=== PATIENT | male | born 1990 | race African-American/Black ===

== ENCOUNTER 2020-04-22 17:51 | Emergency (ER) | payer OTHER ==
[~2020-04-22] VITALS: Ht 182.9 cm; Wt 86.0 kg
[2020-04-22 17:51] VITALS: BP 134/62
--- NOTE | 2020-04-22 17:54 | PHYS DOC ---
General Adult HPI: HPI: ".. I was getting tested for Asthma at [facility].. I was sent there by [facility].. I was doing deep breaths in the machine.. and felt a pop on my Rt. chest wall.. here ( Points to anterior axillary line T 8/T9 level. 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 Who presents with above hx and complaints right chest wall pain at T8/T9 level at anterior axillary line. Site is tender to palpation, reproduced with deep breaths and cough, and some movement. Patient denies any other history of trauma while working at the disarray/present at [place]. Denies any trauma during PT. Patient states he has been currently being evaluated for asthma reactive airway. Patient denies any recent travel or specific ill contacts. Patient gives a history of prehypertension diagnosis. Patient denied any history of coagulopathy, DVT or other hematological disorders. Patient does not know family history since he is adopted. Patient only follows at [facility] for care. Review of Systems: Review of Systems: Constitutional: Denies fever or chills Eyes: Denies change in visual acuity HENT: Denies nasal congestion or sore throat Respiratory: Complains of chest wall pain Cardiovascular: Denies chest pain or edema GI: Denies abdominal pain, nausea, vomiting, bloody stools or diarrhea : Denies dysuria Musculoskeletal: Denies back pain or joint pain Integument: Denies rash Neurologic: Denies headache, focal weakness or sensory changes Endocrine: Denies polyuria or polydipsia Lymphatic: Denies swollen glands Psychiatric: Denies depression or anxiety Family History: Family History: Not currently available he is adopted Current Medications: Current Meds: See nursing for home meds Allergies: Allergies: No known drug allergies Physical Exam: PE: Constitutional: Well developed, well nourished, no acute distress, non-toxic appearance. [] HENT: Normocephalic, atraumatic, bilateral external ears normal, oropharynx moist, no oral exudates, nose normal. [] Eyes: PERRLA, EOMI, conjunctiva normal, no discharge. [] Neck: Normal range of motion, no tenderness, supple, no stridor. [] Cardiovascular:Heart rate regular rhythm, no murmur [] Lungs & Thorax: Bilateral breath sounds equal apex on auscultation [] chest wall tenderness as per HPI Abdomen: Bowel sounds normal, soft, no tenderness, no masses, no pulsatile masses. [] Skin: Warm, dry, no erythema, no rash. Multiple tattoos. Serenity tattoos across his chest Back: No tenderness, no CVA tenderness. [] Extremities: No tenderness, no cyanosis, no clubbing, ROM intact, no edema. No cording appreciated Neurologic: Alert and oriented X 3, normal motor function, normal sensory function, no focal deficits noted. [] Psychologic: Affect anxious, judgement normal, mood normal. [] EKG: EKG: [] Radiology/Procedures: Radiology/Procedures: [][place] [address] IMAGING REPORT Signed PATIENT: CAROLYNE ANGUIANO ACCOUNT: [id number] : 1990 LOCATION: ER AGE: 29 SEX: M EXAM STATUS: REG ER ORD. PHYSICIAN: ALYSON CANDELARIO MD REASON: cp PROCEDURE: CHEST PA & LATERAL EXAM: CHEST 2 VIEWS. HISTORY: Chest pain. COMPARISON: None. FINDINGS: Frontal and lateral views of the chest are obtained. There are no confluent infiltrates. There is no pneumothorax or pleural effusion. The heart is not enlarged. IMPRESSION: 1. No confluent infiltrates. Electronically signed by: Namita Limon MD (04/22/2020 6:21 PM) [facility] DICTATED AND SIGNED BY: BEVERLY LIMON MD DATE: 04/22/201820 Heart Score: C/O Chest Pain: Yes HEART Score for Chest Pain: HEART Score for Chest Pain Response (Comments) Value History Slighlty/Non-Suspicious 0 ECG Normal 0 Age < 45 0 Risk Factors No Risk Factors 0 Troponin < Normal Limit 0 Total 0 Risk Factors: Risk Factors: DM, Current or recent (<one month) smoker, HTN, HLP, family history of CAD, obesity. Risk Scores: Score 0 - 3: 2.5% MACE over next 6 weeks - Discharge Home Score 4 - 6: 20.3% MACE over next 6 weeks - Admit for Clinical Observation Score 7 - 10: 72.7% MACE over next 6 weeks - Early Invasive Strategies Course & Med Decision Making: Course & Med Decision Making Pertinent Labs and Imaging studies reviewed. (See chart for details) Patient follow-up primary care. He is to ice packs as needed. Suspect cartilage or muscle tear. Expect prolonged tenderness at site. Tylenol ibuprofen for pain. Return if any concerns. Impression: 1. Chest wall pain [] Dragon Disclaimer: Adi Disclaimer: This electronic medical record was generated, in whole or in part, using a voice recognition dictation system. Departure Departure: Referrals: PCP,UNKNOWN (PCP) Scripts Ibuprofen (IBUPROFEN) 400 Mg Tablet 400 MG PO QIDAFTMEAL PRN for chest pain., #120 TAB Prov: ALYSON CANDELARIO MD 04/22/20 Adi Disclaimer This chart was dictated in whole or in part using Voice Recognition software in a busy, high-work load, and often noisy Emergency Department environment. It may contain unintended and wholly unrecognized errors or omissions. ALYSON CANDELARIO MD Apr 22, 2020 17:54
--- NOTE | 2020-04-22 18:24 | RAD ---
EXAM: CHEST 2 VIEWS. HISTORY: Chest pain. COMPARISON: None. FINDINGS: Frontal and lateral views of the chest are obtained. There are no confluent infiltrates. There is no pneumothorax or pleural effusion. The heart is not en larged. IMPRESSION: 1. No confluent infiltrates. Electronically signed by: Namita Limon MD (04/22/2020 6:21 PM) [facility]
[2020-04-22] MEDS ORDERED: IBUP400T18 PO (18:25)
[2020-04-22] MEDS ORDERED: KETOROLAC 60 MG/2 ML VIAL. IM ONE (18:30)
== END 2020-04-22 19:30 | disposition home or self-care (01) ==
LOC: ER 17:51
DX: R07.89 Other chest pain (principal); R06.00 Dyspnea, unspecified; R05 Cough
CPT/HCPCS: 71046; 99283

== ENCOUNTER 2021-03-14 15:24 | Emergency (ER) | payer OTHER ==
[~2021-03-14] VITALS: Ht 175.3 cm; Wt 87.2 kg
[~2021-03-14 15:24] MED LIST: IBUP400T18 PO
[2021-03-14 15:50] VITALS: BP 143/72
--- NOTE | 2021-03-14 16:14 | PHYS DOC ---
Past History Past Medical History: No Pertinent History Past Surgical History: No Surgical History Alcohol Use: None General Adult EDM: Chief Complaint: NAUSEA/VOMITING/DIARRHEA HPI: HPI: 30-year-old male presents with low-grade fever, body aches, nausea, vomiting, diarrhea. The patient's symptoms started yesterday. His and infant son have similar symptoms. Patient is fully vaccinated against COVID-19. He also had COVID-19 1 year ago this month. He has taken Tylenol prior to arrival. Review of Systems: Review of Systems: Constitutional: Denies fever or chills. Body aches, fatigue Eyes: Denies change in visual acuity HENT: Denies nasal congestion or sore throat Respiratory: Denies cough or shortness of breath Cardiovascular: Denies chest pain or edema GI: Nausea, vomiting, diarrhea. : Denies dysuria Musculoskeletal: Denies back pain or joint pain Integument: Denies rash Neurologic: Denies headache, focal weakness or sensory changes Endocrine: Denies polyuria or polydipsia Lymphatic: Denies swollen glands Psychiatric: Denies depression or anxiety Current Medications: Current Meds: Current Medications Medications (Trade) Dose Ordered Sig/Adolph Start Time Stop Time Status Last Admin Dose Admin Ondansetron HCl (Zofran Odt) 4 mg 1X ONCE 03/14/21 16:15 03/14/21 16:16 UNV Allergies: Allergies: Allergies Coded Allergies Type Severity Reaction Last Updated Verified No Known Drug Allergies 04/22/20 No Physical Exam: PE: Constitutional: Well developed, well nourished, no acute distress, non-toxic appearance. [] HENT: Normocephalic, atraumatic, bilateral external ears normal, oropharynx moist, no oral exudates, nose normal. [] Eyes: PERRLA, EOMI, conjunctiva normal, no discharge. [] Neck: Normal range of motion, no tenderness, supple, no stridor. [] Cardiovascular: Heart rate regular rhythm, no murmur [] Lungs & Thorax: Bilateral breath sounds clear to auscultation [] Abdomen: Bowel sounds normal, soft, no tenderness, no masses, no pulsatile masses. [] Skin: Warm, dry, no erythema, no rash. [] Back: No tenderness, no CVA tenderness. [] Extremities: No tenderness, no cyanosis, no clubbing, ROM intact, no edema. [] Neurologic: Alert and oriented X 3, normal motor function, normal sensory function, no focal deficits noted. [] Psychologic: Affect normal, judgement normal, mood normal. [] EKG: EKG: [] Radiology/Procedures: Radiology/Procedures: [] Heart Score: C/O Chest Pain: N/A Risk Factors: Risk Factors: DM, Current or recent (<one month) smoker, HTN, HLP, family history of CAD, obesity. Risk Scores: Score 0 - 3: 2.5% MACE over next 6 weeks - Discharge Home Score 4 - 6: 20.3% MACE over next 6 weeks - Admit for Clinical Observation Score 7 - 10: 72.7% MACE over next 6 weeks - Early Invasive Strategies Course & Med Decision Making: Course & Med Decision Making Pertinent Labs and Imaging studies reviewed. (See chart for details) The patient's rapid influenza and COVID were negative, but his son was positive for flu B. This is likely influenza B. I will discharge him with Zofran. He is stable for discharge at this time. [] Dragon Disclaimer: Dragon Disclaimer: This electronic medical record was generated, in whole or in part, using a voice recognition dictation system. Departure Departure: Impression: Primary Impression: Influenza B Disposition: 01 HOME / SELF CARE / HOMELESS Condition: STABLE Referrals: NATALIE MEDINA DO, [facility] (PCP) Patient Instructions: Influenza, Adult, [id number] Scripts Ondansetron (ONDANSETRON ODT) 4 Mg Tab.rapdis 1 TAB PO PRN Q6-8HRS PRN for VOMITING, #16 TAB Prov: VIOLETA JOHNSON DO 03/14/21 VIOLETA JOHNSON DO Mar 14, 2021 16:14
[2021-03-14] MEDS: ONDANSETRON ODT 4 MG TAB.RAPDIS PO ONE (16:27)
[2021-03-14 17:08] LABS: INFLUENZA A PATIENT NEGATIVE (NEGATIVE); INFLUENZA B PATIENT NEGATIVE (NEGATIVE)
[2021-03-14] MEDS ORDERED: ONDA4TAB12 PO (17:19)
== END 2021-03-14 17:57 | disposition home or self-care (01) ==
LOC: ER 15:24
DX: J10.1 Influenza due to other identified influenza virus with other respiratory manifestations (principal); Z20.822 Contact with and (suspected) exposure to COVID-19
CPT/HCPCS: 87428; 99283; Q0162

== ENCOUNTER 2021-05-04 00:50 | Emergency (ER) | payer OTHER ==
[~2021-05-04] VITALS: Ht 175.3 cm; Wt 84.9 kg
[~2021-05-04 00:50] MED LIST changes: +ONDA4TAB12 PO
--- NOTE | 2021-05-04 01:22 | PHYS DOC ---
Past History Past Medical History: No Pertinent History Additional Past Medical Histor: ADD Past Surgical History: Other Additional Past Surgical Histo: HERNIA REPAIR Alcohol Use: Occasionally General Adult EDM: Chief Complaint: HEADACHE HPI: HPI: 30-year-old male presents with dizziness and headache. The patient has had spells of dizziness the last 2 to 3 days. He just started losartan for elevated blood pressure about 5 days ago. Today, the patient was at work when he started to feel dizzy. He describes the dizziness as a lightheaded, off-balance feeling. This was then followed by a pressure headache all over. It got worse as he was driving home so he decided to come in for evaluation. The patient does not have a significant history of headaches. He denies significant caffeine use, no alcohol for the last 30 days, no drug use. He exercises regularly. He states all of the symptoms seem to start after starting the losartan. He was on losartan in the past but only for about a month. Denies fever chills. Review of Systems: Review of Systems: Constitutional: Denies fever or chills Eyes: Denies change in visual acuity HENT: Denies nasal congestion or sore throat Respiratory: Denies cough or shortness of breath Cardiovascular: Denies chest pain or edema GI: Denies abdominal pain, nausea, vomiting, bloody stools or diarrhea : Denies dysuria Musculoskeletal: Denies back pain or joint pain Integument: Denies rash Neurologic: Dizziness, headache. Denies focal weakness or sensory changes Endocrine: Denies polyuria or polydipsia Lymphatic: Denies swollen glands Psychiatric: Denies depression or anxiety Allergies: Allergies: Allergies Coded Allergies Type Severity Reaction Last Updated Verified No Known Drug Allergies 04/22/20 No Physical Exam: PE: Constitutional: Well developed, well nourished, no acute distress, non-toxic appearance. [] HENT: Normocephalic, atraumatic, bilateral external ears normal, oropharynx moist, no oral exudates, nose normal. [] Eyes: PERRLA, EOMI, conjunctiva normal, no discharge. [] Neck: Normal range of motion, no tenderness, supple, no stridor. [] Cardiovascular: Heart rate regular rhythm, no murmur [] Lungs & Thorax: Bilateral breath sounds clear to auscultation [] Abdomen: Bowel sounds normal, soft, no tenderness, no masses, no pulsatile masses. [] Skin: Warm, dry, no erythema, no rash. [] Back: No tenderness, no CVA tenderness. [] Extremities: No tenderness, no cyanosis, no clubbing, ROM intact, no edema. [] Neurologic: Alert and oriented X 3, normal motor function, normal sensory function, no focal deficits noted. [] Psychologic: Affect normal, judgement normal, mood concerned. [] Current Patient Data: Vital Signs: Vital Signs Date Time Temp Pulse Resp B/P (MAP) Pulse Ox O2 Delivery O2 Flow Rate FiO2 05/04/21 00:50 98.1 96 20 151/94 (113) 98 Room Air EKG: EKG: [] Radiology/Procedures: Radiology/Procedures: [] Impressions: XR CHEST 1V History: Dizziness. Comparison: 04/22/2020 Technique: AP radiograph of the chest. Findings: The lungs are adequately and symmetrically inflated. No airspace consolidation, pleural effusion or pneumothorax. The cardiomediastinal silhouette and pulmonary vasculature are within normal limits. No acute osseous abnormality. Soft tissues are unremarkable. Impression: 1. No acute cardiopulmonary process. Electronically signed by: Real Larson MD (05/04/2021 2:18 AM) [facility] DICTATED AND SIGNED BY: REAL LARSON MD DATE: 05/04/21216 CC: VIOLETA JOHNSON DO; NATALIE MEDINA DO, [facility] ~ Heart Score: C/O Chest Pain: N/A Risk Factors: Risk Factors: DM, Current or recent (<one month) smoker, HTN, HLP, family history of CAD, obesity. Risk Scores: Score 0 - 3: 2.5% MACE over next 6 weeks - Discharge Home Score 4 - 6: 20.3% MACE over next 6 weeks - Admit for Clinical Observation Score 7 - 10: 72.7% MACE over next 6 weeks - Early Invasive Strategies Course & Med Decision Making: Course & Med Decision Making Pertinent Labs and Imaging studies reviewed. (See chart for details) The patient's EKG is negative for acute findings. Chest x-ray is negative for acute findings. The patient's labs are unremarkable. His troponin is negative. His urinalysis is negative for infection. His urine drug screen is negative. My best conclusion at this point is that the patient has a sensitivity to the losartan. I have advised that he stop taking it and see if his symptoms resolve. I will leave it between him and his primary physician to attempt a trial in the future or not. It is also possible the patient is coming down with a viral illness and his symptoms are not related to his medication. He has no symptoms to indicate this at this time. The patient was given a liter normal saline, 25 mg of Benadryl, 10 mg of Reglan, 30 mg of Toradol for his headache. He is stable for discharg at this time. [] Dragon Disclaimer: Dragon Disclaimer: This electronic medical record was generated, in whole or in part, using a voice recognition dictation system. Departure Departure: Impression: Primary Impression: Headache Additional Impression: Medication adverse effect Disposition: 01 HOME / SELF CARE / HOMELESS Condition: STABLE Referrals: NATALIE MEDINA DO, [facility] (PCP) Patient Instructions: General Headache Without Cause, [id number] VIOLETA JOHNSON DO May 04, 2021 01:22
[2021-05-04] MEDS ORDERED: METOCLOPRAMIDE HCL 10 MG/2 ML VIAL. IVP ONE (02:00)
[2021-05-04] MEDS ORDERED: diphenhydrAMINE 50 MG/ML VIAL IVP ONE (02:00)
[2021-05-04] MEDS ORDERED: KETOROLAC 30 MG/ML VIAL. IVP ONE (02:00)
[2021-05-04] MEDS ORDERED: IV NORMAL SALINE 1,000ML 1,000 ML IV ONE (02:00)
[2021-05-04 02:01] LABS: BASO % 1 % (0-3); EOS % 1 % (0-3); HEMATOCRIT 42.5 % (39.0-53.0); HEMOGLOBIN 14.3 g/dL (13.0-17.5); LYMPH # 1.8 x10^3/uL (1.0-4.8); LYMPH % 31 % (24-48); MEAN CORPUSCULAR HEMOGLOBIN 31 pg (25-35); MEAN CORPUSCULAR HGB CONC 34 g/dL (31-37); MEAN CORPUSCULAR VOLUME 91 fL (79-100); MONO # 0.4 x10^3/uL (0.0-1.1); MONO % 7 % (0-9); NEUT # 3.6 x10^3uL (1.8-7.7); NEUT % 62 % (31-73); PLATELET COUNT 247 x10^3/uL (140-400); RED BLOOD COUNT 4.69 x10^6/uL (4.30-5.70); RED CELL DISTRIBUTION WIDTH 12.8 % (11.5-14.5); WHITE BLOOD COUNT 5.9 x10^3/uL (4.0-11.0)
[2021-05-04 02:10] LABS: CALCIUM 9.5 mg/dL (8.5-10.1); CREATININE 1.2 mg/dL (0.7-1.3); GFR 86.6; POTASSIUM 3.9 mmol/L (3.5-5.1)
[2021-05-04 02:16] LABS: ALBUMIN 4.2 g/dL (3.4-5.0); ALBUMIN/GLOBULIN RATIO 1.3 (1.0-1.7); TOTAL BILIRUBIN 1.5 mg/dL (0.2-1.0); TOTAL PROTEIN 7.4 g/dL (6.4-8.2)
--- NOTE | 2021-05-04 02:20 | RAD ---
XR CHEST 1V History: Dizziness. Comparison: 04/22/2020 Technique: AP radiograph of the chest. Findings: The lungs are adequately and symmetrically inflated. No airspace consolidation, pleural effusion or p neumothorax. The cardiomediastinal silhouette and pulmonary vasculature are within normal limits. No acute osseous abnormality. Soft tissues are unremarkable. Impression: 1. No acute cardiopulmonary process. Electronically signed by: Real Larosn MD (05/04/2021 2:18 AM) [facility]
[2021-05-04 02:38] LABS: BARBITURATES NEG (NEG); BENZODIAZEPINES NEG (NEG); CANNABINOIDS NEG (NEG); COCAINE NEG (NEG); METHADONE NEG (NEG); OPIATES NEG (NEG); PHENCYCLIDINE NEG (NEG)
[2021-05-04 02:40] LABS: AMPHETAMINE/METHAMPHETAMINE NEG (NEG)
[2021-05-04 02:42] LABS: BACTERIA,URINE 0 /HPF (0-FEW); CLARITY,URINE CLEAR; COLOR,URINE YELLOW; GLUCOSE,URINE NEG (NEG); NITRITE,URINE NEG (NEG); RBC,URINE 0 /HPF (0-2); WBC,URINE 0 /HPF (0-4)
--- NOTE | 2021-05-04 02:51 | EKG ---
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
[2021-05-04 03:00] VITALS: BP 125/73
== END 2021-05-04 03:00 | disposition home or self-care (01) ==
LOC: ER 00:50
DX: R51.9 Headache, unspecified (principal); R42 Dizziness and giddiness; T46.5X5A Adverse effect of other antihypertensive drugs, initial encounter; Y92.89 Other specified places as the place of occurrence of the external cause
CPT/HCPCS: 36415; 71045; 80053; 80307; 81001; 84484; 85025; 93005; 96361; 96374; 96375; 99285; J1885; J2765; J7030